=== PATIENT | female | born 1930 | race Caucasian/White ===

== ENCOUNTER 2022-05-24 15:04 | Inpatient (IN) | payer MEDICARE, BC ==
[~2022-05-24] VITALS: Ht 157.5 cm; Wt 72.7 kg
[2022-05-24] MEDS ORDERED: LIDOcaine 2% 10ml TOPICAL JELLY (Urojet) TP ONE (19:25)
[2022-05-24] MEDS ORDERED: acetaminophen 325mg tablet PO ONE (19:25)
[2022-05-24 19:45] LABS: BASOPHILS # (AUTO) 0.1 X10'3 (0-0.2); BASOPHILS % (AUTO) 0.3 % (0-1); EOSINOPHILS % (AUTO) 0.1 % (0-6); HEMATOCRIT 32.6 % (35.0-45.0); HEMOGLOBIN 10.8 g/dl (12.0-16.0); LYMPHOCYTES # (AUTO) 0.5 X10'3 (1.1-4.8); LYMPHOCYTES % (AUTO) 3.4 % (21-51); MEAN CORPUSCULAR HEMOGLOBIN 27.3 PG (27.0-31.0); MEAN CORPUSCULAR HGB CONC 33.1 g/dL (33.0-36.5); MEAN CORPUSCULAR VOLUME 82.5 FL (78-98); MEAN PLATELET VOLUME 9.3 FL (7.4-10.4); MONOCYTES # (AUTO) 0.9 X10'3 (0-0.9); MONOCYTES % (AUTO) 5.6 % (2-12); NEUTROPHILS # (AUTO) 13.8 X10'3 (1.8-7.7); NEUTROPHILS % (AUTO) 90.6 % (42-75); PLATELET COUNT 225 X10'3 (140-440); RED BLOOD COUNT 3.95 X10'6 (4.20-5.60); RED CELL DISTRIBUTION WIDTH 14.3 % (11.5-14.5); WHITE BLOOD COUNT 15.3 X10'3 (4.5-11.0)
[2022-05-24 19:58] LABS: ALANINE AMINOTRANSFERASE 15 U/L (12-78); ALKALINE PHOSPHATASE 69 IU/L (46-116); ANION GAP 10 (8-16); ASPARTATE AMINO TRANSFERASE 17 U/L (10-37); BILIRUBIN,TOTAL 0.6 MG/DL (0.1-1.0); BLOOD UREA NITROGEN 24 MG/DL (7-18); BUN/CREATININE RATIO 21.2 (6.6-38.0); CALCIUM 9.8 MG/DL (8.5-10.1); CHLORIDE 98 MMOL/L (99-107); CREATININE 1.13 MG/DL (0.40-0.90); GLUCOSE 260 MG/DL (70-104); SODIUM 133 MMOL/L (135-145); TOTAL CARBON DIOXIDE 25.1 MMOL/L (24-32); eGFR 45 ML/MIN
[2022-05-24] MEDS ORDERED: acetaminophen 325mg tablet PO PRN (20:45)
[2022-05-24] MEDS ORDERED: potassium Cl 40MEQ/1/2NS 520ml 520 ML IV PRN (20:45)
[2022-05-24] MEDS ORDERED: magnesium Cl slow-release 64mg tablet PO PRN (20:45)
[2022-05-24] MEDS: normal saline 1000ml 1,000 ML IV SCH (20:45)
[2022-05-24] MEDS ORDERED: potassium Cl 20 mEq SR tablet PO PRN ×2 (20:45)
[2022-05-24] MEDS ORDERED: magnesium 4gm in 100ml NS 100 ML IV PRN (20:45)
[2022-05-24 21:40] LABS: CLARITY,URINE CLEAR (Clear); COLOR,URINE YELLOW (Yellow); GLUCOSE, URINE >=1000 mg/dl (Neg); KETONES,URINE TRACE mg/dl (Neg); LEUKOCYTE ESTERASE ,URINE NEGATIVE (Neg); NITRITES, URINE NEGATIVE (Neg); OCCULT BLOOD,URINE MODERATE (Neg); PROTEIN,URINE 100 mg/dl (Neg); UROBILINOGEN,URINE 0.2 E.U/dL (0.2-1.0)
[2022-05-24 21:46] LABS: UA COLLECTION TYPE FOLEY CATH
[2022-05-24 21:49] LABS: BACTERIA,URINE FEW /HPF (Neg); FINE GRANULAR CAST 0-3 /LPF (NEGATIVE); MUCUS STRANDS FEW /LPF (Neg); SQUAMOUS EPITHELIAL CELL,UR FEW /LPF (FEW); WBC,URINE 0-4 /HPF (0-4)
--- NOTE | 2022-05-24 22:07 | NUR ---
Paged admitting MD for a zofran due to pt co of nausea.
[2022-05-24] MEDS: ondansetron/PF 4mg/2ml inj IV PRN (22:41)
[2022-05-24] MEDS: HYDROcodone/acetaminophen 5mg/325mg tablet PO PRN (22:41)
--- NOTE | 2022-05-24 23:20 | NUR ---
Patient in room [facility]. I have received report from ADOLFO Hong and had the opportunity to ask questions and assume patient care.
--- NOTE | 2022-05-24 23:45 | NUR ---
pt arrived to floor on [place]. daughter at bedside. pt transferred to bed. settled in. oriented to room. call light in reach. daughter leaving to go home. will return in am
[2022-05-25 00:13] VITALS: BP 164/59
[2022-05-25] MEDS: morphine 2 MG/ML inj. syringe IV PRN ×4 (03:41→21:48)
--- NOTE | 2022-05-25 06:21 | NUR ---
Patient in room [facility]. I have received report from matthew gil and had the opportunity to ask questions and assume patient care.
[2022-05-25 06:29] VITALS: BP 148/52
[2022-05-25 06:30] VITALS: BP 148/52
[2022-05-25 06:45] LABS: BASOPHILS % (AUTO) 0.3 % (0-1); EOSINOPHILS # (AUTO) 0.1 X10'3 (0-0.9); EOSINOPHILS % (AUTO) 1.3 % (0-6); HEMATOCRIT 32.4 % (35.0-45.0); HEMOGLOBIN 10.2 g/dl (12.0-16.0); LYMPHOCYTES # (AUTO) 0.5 X10'3 (1.1-4.8); LYMPHOCYTES % (AUTO) 4.9 % (21-51); MEAN CORPUSCULAR HEMOGLOBIN 27.5 PG (27.0-31.0); MEAN CORPUSCULAR HGB CONC 31.4 g/dL (33.0-36.5); MEAN CORPUSCULAR VOLUME 87.6 FL (78-98); MEAN PLATELET VOLUME 9.3 FL (7.4-10.4); MONOCYTES # (AUTO) 0.9 X10'3 (0-0.9); NEUTROPHILS # (AUTO) 9.5 X10'3 (1.8-7.7); NEUTROPHILS % (AUTO) 85.5 % (42-75); PLATELET COUNT 204 X10'3 (140-440); RED CELL DISTRIBUTION WIDTH 14.7 % (11.5-14.5); WHITE BLOOD COUNT 11.1 X10'3 (4.5-11.0)
--- NOTE | 2022-05-25 06:47 | NUR ---
Problems reprioritized. Patient report given, questions answered & plan of care reviewed with TAYLOR Ely.
[2022-05-25] MEDS: docusate sod 100mg capsule PO SCH ×2 (06:56→20:00)
[2022-05-25 06:58] LABS: % IRON SATURATION 11 % (11-46); IRON 33 UG/DL (49-151); TOTAL IRON BINDING CAPACITY 298 UG/DL (259-388)
[2022-05-25] MEDS ORDERED: LISI20TA28 PO (07:06)
[2022-05-25] MEDS ORDERED: SYN0.088T PO (07:07)
[2022-05-25] MEDS ORDERED: METF-900 PO (07:07)
[2022-05-25 07:10] LABS: ALBUMIN 3.4 G/DL (3.4-5.0); ANION GAP 9 (8-16); BLOOD UREA NITROGEN 28 MG/DL (7-18); BUN/CREATININE RATIO 25.2 (6.6-38.0); CHLORIDE 101 MMOL/L (99-107); CREATININE 1.11 MG/DL (0.40-0.90); GLUCOSE 185 MG/DL (70-104); POTASSIUM 3.9 MMOL/L (3.5-5.1); SODIUM 137 MMOL/L (135-145); eGFR 46 ML/MIN
[2022-05-25] MEDS ORDERED: SERT-433 PO (07:11)
[2022-05-25] MEDS ORDERED: SIMV-42 PO (07:11)
[2022-05-25] MEDS ORDERED: AMLO2.5T2 PO (07:13)
[2022-05-25] MEDS: K and/or MAG REPLACEMENT MC SCH ×2 (08:00→19:27)
[2022-05-25] MEDS: ondansetron/PF 4mg/2ml inj IV PRN (09:26)
[2022-05-25] MEDS: HYDROcodone/acetaminophen 5mg/325mg tablet PO PRN (09:26)
[2022-05-25] MEDS ORDERED: DEXTROSE 15 GM of carb/4 tabs (each vial/BOTTLE has 4 tablets) PO PRN ×2 (09:40)
[2022-05-25] MEDS ORDERED: dextrose 50%-water 50ml dispensing syringe IV PRN ×2 (09:40)
[2022-05-25] MEDS ORDERED: MESSAGE TO PHARMACY PO ONE (09:40)
[2022-05-25] MEDS ORDERED: glucagon, human recombinant 1mg kit SUBCUT PRN (09:40)
[2022-05-25 11:10] VITALS: BP 162/51
[2022-05-25] MEDS: insulin Lispro (HumaLOG) vial - multi-dose SQ SCH (13:47)
[2022-05-25 18:00] VITALS: BP 169/64
--- NOTE | 2022-05-25 18:14 | NUR ---
Problems reprioritized. Patient report given, questions answered & plan of care reviewed with MUKUND VAZQUEZ.
[2022-05-25] MEDS ORDERED: LISI1TAB53 PO (19:25)
[2022-05-25] MEDS: atorvastatin 20mg tablet PO SCH (21:14)
[2022-05-25] MEDS: insulin glargine (Lantus) pen - multi-dose SQ SCH (21:21)
[2022-05-25 22:00] VITALS: BP 155/51
[2022-05-26] VITALS (11 sets, daily range): BP systolic 92–155; BP diastolic 31–81
[2022-05-26] MEDS: morphine 2 MG/ML inj. syringe IV PRN ×2 (04:11→20:21)
--- NOTE | 2022-05-26 06:13 | NUR ---
Problems reprioritized. Patient report given, questions answered & plan of care reviewed with Sera VAZQUEZ. Addendum: 05/26/22 at 0613 by Alise Larkin RN Amended: Links added.
[2022-05-26 06:30] LABS: BASOPHILS # (AUTO) 0.1 X10'3 (0-0.2); BASOPHILS % (AUTO) 0.6 % (0-1); EOSINOPHILS # (AUTO) 0.1 X10'3 (0-0.9); EOSINOPHILS % (AUTO) 0.9 % (0-6); HEMATOCRIT 28.2 % (35.0-45.0); HEMOGLOBIN 9.2 g/dl (12.0-16.0); LYMPHOCYTES # (AUTO) 0.5 X10'3 (1.1-4.8); MEAN CORPUSCULAR HEMOGLOBIN 27.4 PG (27.0-31.0); MEAN CORPUSCULAR HGB CONC 32.7 g/dL (33.0-36.5); MEAN CORPUSCULAR VOLUME 83.7 FL (78-98); MEAN PLATELET VOLUME 9.9 FL (7.4-10.4); MONOCYTES # (AUTO) 1.1 X10'3 (0-0.9); MONOCYTES % (AUTO) 8.6 % (2-12); NEUTROPHILS # (AUTO) 11.2 X10'3 (1.8-7.7); NEUTROPHILS % (AUTO) 85.9 % (42-75); PLATELET COUNT 181 X10'3 (140-440); RED BLOOD COUNT 3.36 X10'6 (4.20-5.60); RED CELL DISTRIBUTION WIDTH 14.6 % (11.5-14.5)
[2022-05-26 07:19] LABS: HEMOGLOBIN A1C 9.4 % (4.5-6.2)
[2022-05-26] MEDS: sertraline 50mg tablet PO SCH (08:00)
[2022-05-26] MEDS: K and/or MAG REPLACEMENT MC SCH ×2 (08:00→20:00)
[2022-05-26] MEDS: docusate sod 100mg capsule PO SCH ×2 (08:00→20:21)
[2022-05-26] MEDS: insulin Lispro (HumaLOG) vial - multi-dose SQ SCH ×2 (08:22→21:32)
[2022-05-26] MEDS: lisinopril 20mg tablet PO SCH (08:32)
[2022-05-26] MEDS: levoTHYROXINE 88mcg tablet PO SCH (08:33)
[2022-05-26] MEDS: amLODIPine 2.5mg tablet PO SCH (08:33)
[2022-05-26] MEDS: HYDROcodone/acetaminophen 5mg/325mg tablet PO PRN ×3 (08:42→23:02)
[2022-05-26] MEDS: ondansetron/PF 4mg/2ml inj IV PRN ×3 (08:42→23:07)
[2022-05-26 09:24] LABS: ANION GAP 10 (8-16); BLOOD UREA NITROGEN 30 MG/DL (7-18); BUN/CREATININE RATIO 22.4 (6.6-38.0); CALCIUM 9.3 MG/DL (8.5-10.1); CHLORIDE 99 MMOL/L (99-107); CREATININE 1.34 MG/DL (0.40-0.90); GLUCOSE 221 MG/DL (70-104); MAGNESIUM 2.4 MG/DL (1.5-2.4); POTASSIUM 4.1 MMOL/L (3.5-5.1); SODIUM 133 MMOL/L (135-145); TOTAL CARBON DIOXIDE 24.4 MMOL/L (24-32); eGFR 37 ML/MIN
[2022-05-26] MEDS ORDERED: morphine 2 MG/ML inj. syringe IV PRN (10:05)
[2022-05-26] MEDS ORDERED: ringers solution, lacted 1,000 ML IV SCH (10:05)
[2022-05-26] MEDS ORDERED: proCHLORperazine 10 MG/2 ml inj IV PRN (10:05)
[2022-05-26] MEDS ORDERED: morphine 4 MG/ML inj SYRINge IV PRN (10:05)
[2022-05-26] MEDS ORDERED: ondansetron/PF 4mg/2ml inj IV PRN (10:05)
[2022-05-26] MEDS ORDERED: meperidine/PF 25mg/ml syringe IV PRN ×3 (10:05)
--- NOTE | 2022-05-26 11:09 | NUR ---
DM Consult: Pt hx T2DM A1C 9.4% per EMR. Pt DX L femur fx s/p fall currently NPO to OR today per EMR. Written DM ed w/ RD contact information placed in pt chart. Addendum: 05/26/22 at [address] Amended: Links added.
[2022-05-26] MEDS ORDERED: ROPIVAcaine 0.5% (5mg/ml) 30ml vial ONE (12:04)
[2022-05-26] MEDS ORDERED: vancomycin 1,000mg inj ONE (12:04)
[2022-05-26] MEDS ORDERED: midazolam 1 mg/ML 2ml injection ONE (12:38)
[2022-05-26] MEDS ORDERED: FENTANYL CITRATE/PF 50 MCG/1 ML VIAL ONE (12:38)
[2022-05-26] MEDS ORDERED: ceFAZolin 1000mg inj ONE ×2 (13:02)
[2022-05-26] MEDS ORDERED: ePHEDrine 50MG/ML INJ. ONE (13:08)
--- NOTE | 2022-05-26 14:55 | NUR ---
PATIENT HAS MET ALL CRITERIA FOR TRANSFER TO SURGICAL FLOOR. VSS. DRESSINGS INTACT. BED LOW, CALL LIGHT PRESENT AND 2 RAILS UP. RN PRESENT TO ACCEPT CARE OF PATIENT AND REPORT HAS BEEN CALLED. ALL QUESTIONS ANSWERED TO ACCEPTING RN. Addendum: 05/26/22 at 1515 by Benjamin Garcia RN Amended: Links added.
--- NOTE | 2022-05-26 18:50 | NUR ---
Problems reprioritized. Patient report given, questions answered & plan of care reviewed with TAYLOR Carrero.
[2022-05-26] MEDS ORDERED: VANCOMYCIN 1,500MG inj. 1,500 MG in normal saline 500ml IV soln 300 ML IV ONE (20:00)
[2022-05-26] MEDS: atorvastatin 20mg tablet PO SCH (20:20)
[2022-05-26] MEDS: normal saline 1000ml 1,000 ML IV SCH (20:45)
[2022-05-26] MEDS: insulin glargine (Lantus) pen - multi-dose SQ SCH (21:30)
[2022-05-27] MEDS: morphine 2 MG/ML inj. syringe IV PRN (01:06)
[2022-05-27 02:00] VITALS: BP 138/46
[2022-05-27] MEDS: ondansetron/PF 4mg/2ml inj IV PRN ×2 (05:13→19:23)
[2022-05-27] MEDS: HYDROcodone/acetaminophen 5mg/325mg tablet PO PRN ×4 (05:14→19:21)
--- NOTE | 2022-05-27 06:30 | NUR ---
Patient in room [facility]. I have received report from Alise VAZQUEZ and had the opportunity to ask questions and assume patient care.
[2022-05-27 06:34] LABS: BASOPHILS # (AUTO) 0.1 X10'3 (0-0.2); BASOPHILS % (AUTO) 0.5 % (0-1); EOSINOPHILS # (AUTO) 0.2 X10'3 (0-0.9); EOSINOPHILS % (AUTO) 2.4 % (0-6); HEMATOCRIT 26.4 % (35.0-45.0); HEMOGLOBIN 9.1 g/dl (12.0-16.0); LYMPHOCYTES # (AUTO) 0.5 X10'3 (1.1-4.8); LYMPHOCYTES % (AUTO) 4.8 % (21-51); MEAN CORPUSCULAR HEMOGLOBIN 28.6 PG (27.0-31.0); MEAN CORPUSCULAR HGB CONC 34.3 g/dL (33.0-36.5); MEAN CORPUSCULAR VOLUME 83.2 FL (78-98); MEAN PLATELET VOLUME 9.3 FL (7.4-10.4); MONOCYTES # (AUTO) 0.9 X10'3 (0-0.9); MONOCYTES % (AUTO) 9.1 % (2-12); NEUTROPHILS # (AUTO) 8.2 X10'3 (1.8-7.7); NEUTROPHILS % (AUTO) 83.2 % (42-75); PLATELET COUNT 165 X10'3 (140-440); RED BLOOD COUNT 3.17 X10'6 (4.20-5.60); RED CELL DISTRIBUTION WIDTH 14.8 % (11.5-14.5); WHITE BLOOD COUNT 9.9 X10'3 (4.5-11.0)
[2022-05-27 06:38] LABS: ALBUMIN 2.6 G/DL (3.4-5.0); ANION GAP 4 (8-16); BLOOD UREA NITROGEN 27 MG/DL (7-18); BUN/CREATININE RATIO 22.1 (6.6-38.0); CALCIUM 8.6 MG/DL (8.5-10.1); CHLORIDE 98 MMOL/L (99-107); CREATININE 1.22 MG/DL (0.40-0.90); GLUCOSE 194 MG/DL (70-104); MAGNESIUM 1.9 MG/DL (1.5-2.4); POTASSIUM 3.9 MMOL/L (3.5-5.1); SODIUM 128 MMOL/L (135-145); TOTAL CARBON DIOXIDE 25.8 MMOL/L (24-32); eGFR 42 ML/MIN
[2022-05-27] MEDS: K and/or MAG REPLACEMENT MC SCH ×2 (06:42→19:49)
[2022-05-27 07:00] VITALS: BP 160/51
[2022-05-27] MEDS: sertraline 50mg tablet PO SCH (07:13)
[2022-05-27] MEDS: docusate sod 100mg capsule PO SCH ×2 (07:13→19:52)
[2022-05-27] MEDS: levoTHYROXINE 88mcg tablet PO SCH (07:13)
[2022-05-27] MEDS: amLODIPine 2.5mg tablet PO SCH (07:15)
[2022-05-27] MEDS: lisinopril 20mg tablet PO SCH (07:16)
[2022-05-27] MEDS: insulin Lispro (HumaLOG) vial - multi-dose SQ SCH ×2 (08:54→13:47)
[2022-05-27 12:24] VITALS: BP 116/43
--- NOTE | 2022-05-27 18:17 | NUR ---
Problems reprioritized. Patient report given, questions answered & plan of care reviewed with Bladimir VAZQUEZ.
[2022-05-27 18:30] VITALS: BP 169/64
--- NOTE | 2022-05-27 18:30 | NUR ---
Patient in room [facility]. I have received report from TAYLOR Freedman and had the opportunity to ask questions and assume patient care. Addendum: 05/27/22 at 1856 by Bladimir Mendosa RN Amended: Links added.
--- NOTE | 2022-05-27 18:45 | NUR ---
Pt repositioned with pillows, c/o pain. daughter at bedside. did not eat dinner, ordered cottage cheese and fruit for pt. faxed to dietary. Addendum: 05/27/22 at 1859 by Bladimir Mendosa RN Amended: Links added.
[2022-05-27] MEDS: atorvastatin 20mg tablet PO SCH (20:29)
[2022-05-27] MEDS: insulin glargine (Lantus) pen - multi-dose SQ SCH (21:50)
[2022-05-27 22:00] VITALS: BP 119/47
[2022-05-27] MEDS: normal saline 1000ml 1,000 ML IV SCH (23:30)
[2022-05-28] MEDS: morphine 2 MG/ML inj. syringe IV PRN (00:17)
[2022-05-28] MEDS: ondansetron/PF 4mg/2ml inj IV PRN (02:22)
[2022-05-28] MEDS: HYDROcodone/acetaminophen 5mg/325mg tablet PO PRN ×5 (02:22→20:56)
--- NOTE | 2022-05-28 03:19 | NUR ---
gamal in place pt states feeling urge to urinate now. Addendum: 05/28/22 at 0320 by Bladimir Mendosa RN Amended: Links added.
--- NOTE | 2022-05-28 04:37 | NUR ---
pt has not voided unable to get on bedpan, feels urge but no void, has been bladder scan showing 349 to 4010 Addendum: 05/28/22 at 0439 by Bladimir Mendosa RN note barrie Addendum: 05/28/22 at 0449 by Bladimir Mendosa RN bladder scan shows anywhere from 250 to 410. pt refusing to be straight cathed at this time, explained to pt that it has been to long, and IV fluid was turned up for low urine output. pt states she can urinate soon and please just wait longer. pt refusing at this time. wick in place.
[2022-05-28] MEDS: normal saline 1000ml 1,000 ML IV SCH ×3 (04:38→19:36)
--- NOTE | 2022-05-28 05:41 | NUR ---
interdry placed unader abd fold, groin and under breasts, poc with pillows omar was given. Addendum: 05/28/22 at 0542 by Bladimir Mendosa RN Amended: Links added.
[2022-05-28 06:00] VITALS: BP 151/43
--- NOTE | 2022-05-28 06:15 | NUR ---
RECEIVED REPORT FROM TAYLOR LAMAS
--- NOTE | 2022-05-28 06:16 | NUR ---
daughter at bedside, Problems reprioritized. Patient report given, questions answered & plan of care reviewed with TAYLOR Ambrose. Addendum: 05/28/22 at 0616 by Bladimir Mendosa RN Amended: Links added.
[2022-05-28 06:31] LABS: BASOPHILS # (AUTO) 0.1 X10'3 (0-0.2); BASOPHILS % (AUTO) 0.5 % (0-1); EOSINOPHILS # (AUTO) 0.3 X10'3 (0-0.9); EOSINOPHILS % (AUTO) 2.8 % (0-6); HEMATOCRIT 24.4 % (35.0-45.0); HEMOGLOBIN 8.1 g/dl (12.0-16.0); LYMPHOCYTES # (AUTO) 0.6 X10'3 (1.1-4.8); LYMPHOCYTES % (AUTO) 6.4 % (21-51); MEAN CORPUSCULAR HEMOGLOBIN 27.8 PG (27.0-31.0); MEAN CORPUSCULAR HGB CONC 33.4 g/dL (33.0-36.5); MEAN CORPUSCULAR VOLUME 83.2 FL (78-98); MEAN PLATELET VOLUME 9.8 FL (7.4-10.4); MONOCYTES # (AUTO) 1.1 X10'3 (0-0.9); MONOCYTES % (AUTO) 11.3 % (2-12); PLATELET COUNT 191 X10'3 (140-440); RED BLOOD COUNT 2.93 X10'6 (4.20-5.60); RED CELL DISTRIBUTION WIDTH 14.6 % (11.5-14.5); WHITE BLOOD COUNT 10.1 X10'3 (4.5-11.0)
[2022-05-28 06:54] LABS: ALBUMIN 2.3 G/DL (3.4-5.0); BLOOD UREA NITROGEN 31 MG/DL (7-18); BUN/CREATININE RATIO 25.4 (6.6-38.0); CALCIUM 8.7 MG/DL (8.5-10.1); CREATININE 1.22 MG/DL (0.40-0.90); GLUCOSE 102 MG/DL (70-104); POTASSIUM 3.8 MMOL/L (3.5-5.1); TOTAL CARBON DIOXIDE 25.1 MMOL/L (24-32); eGFR 42 ML/MIN
[2022-05-28] MEDS: levoTHYROXINE 88mcg tablet PO SCH (07:07)
[2022-05-28 07:26] LABS: ANION GAP 8 (8-16); CHLORIDE 102 MMOL/L (99-107); SODIUM 135 MMOL/L (135-145)
[2022-05-28] MEDS: K and/or MAG REPLACEMENT MC SCH ×2 (08:00→20:00)
[2022-05-28] MEDS: amLODIPine 2.5mg tablet PO SCH (08:01)
[2022-05-28] MEDS: lisinopril 20mg tablet PO SCH (08:02)
[2022-05-28] MEDS: sertraline 50mg tablet PO SCH (08:02)
[2022-05-28] MEDS: docusate sod 100mg capsule PO SCH ×2 (08:02→19:53)
[2022-05-28 10:00] VITALS: BP 137/50
--- NOTE | 2022-05-28 10:30 | NUR ---
pt bg is 102 this morning and she has not eaten, therefore, pt is not a candidate for insulin at this time, continue to monitor
--- NOTE | 2022-05-28 12:30 | NUR ---
bladder scanned pt and scanner said that 126 ml are currently in bladder, continue to monitor and educate about the importance of voiding
[2022-05-28] MEDS: insulin Lispro (HumaLOG) vial - multi-dose SQ SCH ×2 (13:45→19:52)
--- NOTE | 2022-05-28 18:23 | NUR ---
gave report to louise olivera
[2022-05-28 18:30] VITALS: BP 125/46
--- NOTE | 2022-05-28 18:30 | NUR ---
Patient in room [facility]. I have received report from TAYLOR Ambrose and had the opportunity to ask questions and assume patient care. Daughter at bedside Addendum: 05/28/22 at 2004 by Bladimir Mendosa RN Amended: Links added.
--- NOTE | 2022-05-28 20:00 | NUR ---
sl ens wheeze, clears with deep breaths Addendum: 05/29/22 at 0331 by Bladimir Mendosa RN Amended: Links added.
[2022-05-28] MEDS: atorvastatin 20mg tablet PO SCH (20:56)
--- NOTE | 2022-05-28 21:05 | NUR ---
luis for pain, pt concerned about daughter going home with no electricity. called daughter and she is safe at home. Addendum: 05/28/22 at 2105 by Bladimir Mendosa RN Amended: Links added.
[2022-05-28 22:00] VITALS: BP 135/50
[2022-05-28] MEDS: insulin glargine (Lantus) pen - multi-dose SQ SCH (22:50)
[2022-05-29] MEDS: ondansetron/PF 4mg/2ml inj IV PRN ×2 (01:21→07:02)
[2022-05-29] MEDS: HYDROcodone/acetaminophen 5mg/325mg tablet PO PRN ×4 (01:21→13:00)
[2022-05-29] MEDS: normal saline 1000ml 1,000 ML IV SCH (05:30)
--- NOTE | 2022-05-29 05:38 | NUR ---
AWAKE, NORCO GIVEN FOR PAIN. POC WITH PILLOWS. Addendum: 05/29/22 at 0539 by Bladimir Mendosa RN Amended: Links added.
[2022-05-29 06:10] LABS: BASOPHILS % (AUTO) 0.5 % (0-1); EOSINOPHILS # (AUTO) 0.4 X10'3 (0-0.9); EOSINOPHILS % (AUTO) 4.3 % (0-6); HEMOGLOBIN 7.2 g/dl (12.0-16.0); LYMPHOCYTES # (AUTO) 0.7 X10'3 (1.1-4.8); LYMPHOCYTES % (AUTO) 7.4 % (21-51); MEAN CORPUSCULAR HEMOGLOBIN 27.8 PG (27.0-31.0); MEAN CORPUSCULAR HGB CONC 33.1 g/dL (33.0-36.5); MEAN PLATELET VOLUME 9.7 FL (7.4-10.4); MONOCYTES # (AUTO) 1.1 X10'3 (0-0.9); MONOCYTES % (AUTO) 12.5 % (2-12); NEUTROPHILS # (AUTO) 6.6 X10'3 (1.8-7.7); NEUTROPHILS % (AUTO) 75.3 % (42-75); PLATELET COUNT 199 X10'3 (140-440); RED BLOOD COUNT 2.59 X10'6 (4.20-5.60); RED CELL DISTRIBUTION WIDTH 14.6 % (11.5-14.5); WHITE BLOOD COUNT 8.8 X10'3 (4.5-11.0)
--- NOTE | 2022-05-29 06:13 | NUR ---
received report from louise olivera
[2022-05-29 06:17] LABS: HEMATOCRIT 21.8 % (35.0-45.0)
--- NOTE | 2022-05-29 06:18 | NUR ---
Problems reprioritized. Patient report given, questions answered & plan of care reviewed with TAYLOR Ambrose H&H 7.2 & 21.8 Rn will notify , Marin has been paged by RN. Addendum: 05/29/22 at 0619 by Bladimir Mendosa RN Amended: Links added.
--- NOTE | 2022-05-29 06:24 | NUR ---
notified food order delivery runner md of pt low h & h, no new orders at this time
[2022-05-29 06:26] LABS: ANION GAP 7 (8-16); BLOOD UREA NITROGEN 33 MG/DL (7-18); BUN/CREATININE RATIO 24.4 (6.6-38.0); CALCIUM 8.3 MG/DL (8.5-10.1); CHLORIDE 103 MMOL/L (99-107); CREATININE 1.35 MG/DL (0.40-0.90); GLUCOSE 102 MG/DL (70-104); POTASSIUM 4.1 MMOL/L (3.5-5.1); SODIUM 133 MMOL/L (135-145); TOTAL CARBON DIOXIDE 22.8 MMOL/L (24-32); eGFR 37 ML/MIN
[2022-05-29] MEDS: levoTHYROXINE 88mcg tablet PO SCH (06:54)
[2022-05-29 07:00] VITALS: BP 146/51
[2022-05-29] MEDS: morphine 2 MG/ML inj. syringe IV PRN (07:06)
--- NOTE | 2022-05-29 07:09 | NUR ---
surgeon aware of low h & h, no new orders at this time
[2022-05-29] MEDS: K and/or MAG REPLACEMENT MC SCH (07:57)
[2022-05-29] MEDS: docusate sod 100mg capsule PO SCH (08:00)
[2022-05-29] MEDS: amLODIPine 2.5mg tablet PO SCH (08:01)
[2022-05-29] MEDS: sertraline 50mg tablet PO SCH (08:02)
[2022-05-29] MEDS: lisinopril 20mg tablet PO SCH (08:02)
[2022-05-29] MEDS: insulin Lispro (HumaLOG) vial - multi-dose SQ SCH (08:53)
[2022-05-29 09:42] LABS: HEMATOCRIT 28.5 % (35.0-45.0); HEMOGLOBIN 9.2 g/dl (12.0-16.0); MEAN CORPUSCULAR HEMOGLOBIN 27.3 PG (27.0-31.0); MEAN CORPUSCULAR HGB CONC 32.3 g/dL (33.0-36.5); MEAN CORPUSCULAR VOLUME 84.4 FL (78-98); MEAN PLATELET VOLUME 9.7 FL (7.4-10.4); PLATELET COUNT 246 X10'3 (140-440); RED BLOOD COUNT 3.38 X10'6 (4.20-5.60); RED CELL DISTRIBUTION WIDTH 14.6 % (11.5-14.5); WHITE BLOOD COUNT 11.2 X10'3 (4.5-11.0)
[2022-05-29 10:00] VITALS: BP 127/47
--- NOTE | 2022-05-29 13:38 | NUR ---
PRESSURE ULCER EDUCATION: DEFINITION: A pressure ulcer is an area of skin that breaks down when you stay in one position too long. The constant pressure against the skin reduces the blood flow to that area and the affected tissue dies. CAUSES: "Being bedridden or in a wheelchair "Fragile skin "Having a chronic condition, such as diabetes or vascular disease "Inability to move certain parts of your body without assistance "Older age "Incontinence of urine or stool SYMPTOMS: "A reddened area that DOES NOT turn white when pressed on - this can be the beginning of a pressure ulcer "A blister, deep sore or a crater - these can be advanced pressure ulcers FIRST AID: "Relieve the pressure on this area "Keep the area clean and dry "Call your primary doctor if you see any of the above symptoms "DO NOT massage the area "DO NOT use a donut shaped or ring shaped pillow- these actually interfere with the blood flow and cause complications PREVENTION: "Check for pressure ulcers everyday "Change position at least every two hours to relieve pressure "Use items that help relieve pressure- pillows, sheepskin, foam padding, and powders. "Keep skin clean and dry "Eat healthy well balanced meals "Exercise daily IF YOU SEE ANY OF THESE SYMPTOMS WHILE IN THE HOSPITAL - TELL YOUR NURSE IMMEDIATELY. IF YOU SEE ANY OF THESE SYMPTOMS WHILE AT HOME OR HAVE ANY QUESTIONS OR CONCERNS ABOUT PRESSURE ULCERS - CALL YOUR PRIMARY DOCTOR IMMEDIATELY. Addendum: 05/29/22 at 1339 by Tammy Ramírez LVN Amended: Links added.
--- NOTE | 2022-05-29 13:49 | NUR ---
gave report to rn at [facility], pt d/c with all belongings accompanied by fam member and [facility] personnel to go to [facility]
[2022-05-29] MEDS ORDERED: enoxaparin 30mg/0.3ml syringe SUBCUT SCH (20:00)
== END 2022-05-29 13:50 | DRG 522 ==
LOC: ER 15:04 → ED HOLD 20:47 → SUR 3N 23:55
PROVIDERS: ADMIT Internal Medicine; ATTEND Internal Medicine
PROC: 0SRS0JA Replacement of Left Hip Joint, Femoral Surface with Synthetic Substitute, Uncemented, Open Approach (ICD-10-PCS; principal; 2022-05-26 12:36)
DX: S72.012A Unspecified intracapsular fracture of left femur, initial encounter for closed fracture (principal); D72.829 Elevated white blood cell count, unspecified; E03.9 Hypothyroidism, unspecified; Z20.822 Contact with and (suspected) exposure to COVID-19; E11.22 Type 2 diabetes mellitus with diabetic chronic kidney disease; Z66 Do not resuscitate; E78.5 Hyperlipidemia, unspecified; W10.8XXA Fall (on) (from) other stairs and steps, initial encounter; E78.00 Pure hypercholesterolemia, unspecified; I12.9 Hypertensive chronic kidney disease with stage 1 through stage 4 chronic kidney disease, or unspecified chronic kidney disease; I48.91 Unspecified atrial fibrillation; N18.30 Chronic kidney disease, stage 3 unspecified; Z79.82 Long term (current) use of aspirin; Z85.3 Personal history of malignant neoplasm of breast; Y93.89 Activity, other specified; Y92.89 Other specified places as the place of occurrence of the external cause; Y99.8 Other external cause status; Z91.040 Latex allergy status; Z79.899 Other long term (current) drug therapy; D63.8 Anemia in other chronic diseases classified elsewhere
CPT/HCPCS: 36415; 71045; 73502; 73564; 73610; 80048; 80053; 81001; 82948; 83036; 83540; 83550; 83735; 84443; 85025; 85027; 85610; 87081; 87811; 93005; 96360; 97110; 97116; 97161; 97530; 99285; A4615; A6213; A6454; A7000; A9272; C1776; G0378; J0690; J1815; J2250; J2270; J2405; J2795; J3010; J3370; J3490; J7030; J7040; J7060; J7120